=== PATIENT | female | born 1945 | race Caucasian/White ===

== ENCOUNTER 2019-12-11 08:20 | Day surgery (SDC) | payer MEDICARE, BC ==
[~2019-12-11 08:20] MED LIST: Lactated Ringers 1,000 ML IV SCH
[2019-12-11] MEDS ORDERED: Propofol 200 MG/20 ML SDV ONE (08:43)
[2019-12-11] MEDS ORDERED: fentaNYL 100 MCG/2 ML SDV ONE (08:43)
[2019-12-11 11:17] VITALS: BP 100/53; PULSE 68
--- NOTE | 2019-12-11 13:35 | OR ---
DATE OF SURGERY: 12/11/2019. REFERRING PROVIDER: STUART Camacho PRE-OPERATIVE DIAGNOSES: History of colon polyps. The patient denies any family history of colon cancer or colon polyps. POST-OPERATIVE DIAGNOSES: 1. Mild left-sided diverticulosis. 2. Tortuous sigmoid colon. PROCEDURE: Colonoscopy. SURGEON: lA Morrow M.D. ANESTHESIA: Monitored anesthesia care. BOWEL PREP: Good. Nan is a 74-year-old female who was brought to the endoscopy suite after discussing risks and benefits of the procedure. Informed consent was obtained for conscious sedation and colonoscopy with or without biopsy and/or polypectomy. We also discussed possibility of missed lesions. Pre-procedure exam was unremarkable. IV, oxygen, and monitors were placed. The patient was placed in the left lateral decubitus position. Sedation was administered and a digital rectal exam was performed and unremarkable. Colonoscope was passed through the rectum and slowly advanced all the way to the cecum. Cecum was viewed and photographed. The colonoscope was slowly withdrawn and the mucosa was closed observed in a direct circumferential manner. The ascending colon was unremarkable. The transverse colon was unremarkable. The descending colon and sigmoid colon revealed some mild diverticulosis. The patient did have a tortuous sigmoid colon which required some scope maneuvering on the way in to get by this area. There was some assistance with some abdominal lift-type maneuver. Retroflexion was performed and rectal mucosa was unremarkable. Scope was removed. The patient tolerated the procedure well. The patient was monitored until that baseline status. Discharge instructions were reviewed and the patient was discharged in good condition. COMPLICATIONS: None. TOTAL TIME: 28 minutes. ESTIMATED BLOOD LOSS: None. RECOMMENDATIONS/FOLLOW-UP: Given the patient's prior history of colon polyps, I would recommend repeating again in 5 years. I would like to kindly thank Andrew Colon for this referral. DMB: 12/11/2019 10:23:49 MODL: 12/11/2019 12:59:15 /[id number]
== END 2019-12-11 11:42 | disposition home or self-care (01) ==
LOC: VM.SDS 08:20
PROVIDERS: ATTEND Family Medicine
DX: Z12.11 Encounter for screening for malignant neoplasm of colon (principal); K57.30 Diverticulosis of large intestine without perforation or abscess without bleeding; Q43.8 Other specified congenital malformations of intestine; I10 Essential (primary) hypertension; E78.5 Hyperlipidemia, unspecified; G47.00 Insomnia, unspecified; E78.00 Pure hypercholesterolemia, unspecified; G25.0 Essential tremor; N95.1 Menopausal and female climacteric states; M81.0 Age-related osteoporosis without current pathological fracture; M84.40XA Pathological fracture, unspecified site, initial encounter for fracture; Z01.812 Encounter for preprocedural laboratory examination; Z20.828 Contact with and (suspected) exposure to other viral communicable diseases; Z79.899 Other long term (current) drug therapy; Z86.010 Personal history of colon polyps; Z98.890 Other specified postprocedural states
CPT/HCPCS: 00811; J2704; J3010; J7120; U0002